=== PATIENT | female | born 1945 | race Caucasian/White ===

== ENCOUNTER 2019-07-05 22:34 | Inpatient (IN) ==
[2019-07-05] MEDS ORDERED: Furosemide 40 MG/4 ML VIAL IVP ONE (23:45)
[2019-07-06 00:56] LABS: Basophils % 0.7 %; Eosinophils # 0.2 K/mcL (0.0-0.6); Eosinophils % 3.8 %; Hematocrit 35.6 % (35.3-44.9); Hemoglobin 10.7 g/dL (11.5-15.4); Immature Granulocytes % 0.7 % (0-4); Lymphocytes # 0.6 K/mcL (0.6-4.6); Lymphocytes % 9.8 %; Mean Corpuscular HGB Conc 30.1 g/dL (31.6-35.5); Mean Corpuscular Hemoglobin 31.2 pg (28.0-33.3); Mean Corpuscular Volume 103.8 fL (83.0-100.0); Mean Platelet Volume 12.2 fL (9.4-12.4); Monocytes # 0.4 K/mcL (0.0-1.3); Red Blood Count 3.43 M/mcL (3.82-4.97); Red Cell Distribution Width 14.3 % (11.5-14.5)
[2019-07-06 00:58] LABS: Neutrophils # 4.7 K/mcL (1.6-8.9); Platelet Count 84 K/mcL (140-400)
[2019-07-06 01:02] LABS: INR 1.2; Prothrombin Time 13.6 Seconds (9.4-12.1)
[2019-07-06 01:05] LABS: Activated Partial Thrombo Time 37.1 Seconds (26.0-36.0)
[2019-07-06 01:09] LABS: Alanine Aminotransferase 13 Units/L (7-52); Albumin 3.6 g/dL (3.5-5.7); Albumin/Globulin Ratio 1.1 (1.1-2.2); Alkaline Phosphatase 57 Units/L (34-104); Aspartate Amino Transferase 16 Units/L (13-39); Bilirubin,Direct 0.1 mg/dL (0.0-0.2); Bilirubin,Indirect 0.3 mg/dL (0.0-1.0); Bilirubin,Total 0.4 mg/dL (0.3-1.0); Blood Urea Nitrogen > 130 mg/dL (8-23); Calcium 8.8 mg/dL (8.6-10.3); Carbon Dioxide 20 mEq/L (23-29); Chloride 102 mEq/L (98-107); Globulin 3.4 g/dL (2.4-3.5); Glucose 123 mg/dL (70-105); Sodium 134 mEq/L (136-145); Troponin I 0.03 ng/mL (< 0.04); eGFR For African Americans 21 (> 60); eGFR For Non-African Americans 17 (> 60)
[2019-07-06] MEDS ORDERED: SODIUM ZIRCONIUM CYCLOSILICATE 5 GM POWD.PACK PO ONE ×2 (02:02→05:15)
[2019-07-06] MEDS ORDERED: Calcium Gluconate 1gm/50mL 1 GM/50 ML BAG IVPB ONE (02:07)
[2019-07-06] MEDS ORDERED: *HR* Dextrose 50 % in Water (Syg) 50 ML SYRINGE IVP ONE (02:11)
[2019-07-06] MEDS ORDERED: Insulin Human Regular 10 UNIT in 0.9 % Sodium Chloride 10 ML IV ONE (02:15)
[2019-07-06] MEDS ORDERED: Naloxone 0.4 MG/ML INJ IVP PRN (03:12)
[2019-07-06] MEDS ORDERED: Ondansetron 4 MG/2 ML VIAL IVP PRN (03:12)
[2019-07-06 03:45] LABS: Sodium, Urine 41.8 mEq/L
[2019-07-06 04:19] LABS: Bacteria,Urine None Seen per hpf (None-Few); Bilirubin,Urine Negative (Negative); Blood,Urine Trace (Negative); Clarity,Urine Clear (Clear); Color,Urine Yellow (Yellow); Glucose,Urine (UA) Normal (Normal); Hyaline Casts,Urine None Seen per lpf (None-Few); Ketones,Urine Negative (Negative); Leukocyte Esterase,Urine Moderate (Negative); Nitrite,Urine Negative (Negative); PH,Urine 5.5 pH Units (5.0-8.0); Protein,Urine Negative (Neg-Trace); RBC,Urine 0-3 per hpf (0-3); Specific Gravity,Urine 1.013 (1.010-1.025); Squamous Epithelial Cell,Urine Moderate per lpf (None-Few); Urobilinogen,Urine Normal (Normal)
[2019-07-06 05:04] LABS: C-Reactive Protein < 5 mg/L (Less than 10); Magnesium 3.2 mg/dL (1.6-2.6); Phosphorous 6.8 mg/dL (2.7-4.5)
[2019-07-06 05:21] LABS: Blood Urea Nitrogen > 130 mg/dL (8-23); Calcium 8.6 mg/dL (8.6-10.3); Carbon Dioxide 20 mEq/L (23-29); Chloride 103 mEq/L (98-107); Glucose 135 mg/dL (70-105); Potassium 5.4 mEq/L (3.5-5.1); Sodium 134 mEq/L (136-145); eGFR For African Americans 21 (> 60); eGFR For Non-African Americans 18 (> 60)
[2019-07-06] MEDS: *HR* Heparin 5,000 UNIT/ML VIAL SQ SCH ×2 (05:38→16:52)
[2019-07-06] MEDS ORDERED: Dextrose Gel 15 GM/37.5 ML TUBE PO PRN ×2 (05:50)
[2019-07-06] MEDS ORDERED: *HR* Dextrose 50 % in Water (Syg) 50 ML SYRINGE IVP PRN (05:50)
[2019-07-06] MEDS ORDERED: D5% in Water 1,000 ML IVC PRN (05:50)
[2019-07-06] MEDS: Insulin LISPRO 300 UNITS/3 ML VIAL SQ SCH ×3 (08:51→16:52)
[2019-07-06] MEDS: Furosemide 40 MG/4 ML VIAL IVP SCH ×2 (08:52→20:29)
[2019-07-06] MEDS ORDERED: SODIUM ZIRCONIUM CYCLOSILICATE 5 GM POWD.PACK PO SCH (09:00)
[2019-07-06] MEDS ORDERED: 0.9 % Sodium Chloride 1,000 ML ONE (11:52)
[2019-07-06] MEDS ORDERED: 0.9 % Sodium Chloride 250 ML IVC PRN (12:06)
[2019-07-06] MEDS ORDERED: *HR* Heparin 10,000 UNIT/10 ML VIAL IV PRN (12:06)
[2019-07-06] MEDS ORDERED: *HR* Heparin 5,000 UNIT/ML VIAL ONE (12:12)
[2019-07-06] MEDS ORDERED: 0.9 % Sodium Chloride 1,000 ML PRIME SCH (12:15)
[2019-07-06 14:30] LABS: Hepatitis B Surface Antibody < 3.10 mIU/mL
[2019-07-06 14:41] LABS: Hepatitis B Surface Antigen Nonreactive (Nonreactive)
[2019-07-06] MEDS: Insulin DETEMIR 100 UNIT/ML X5UNITS SQ SCH (20:56)
[2019-07-07] MEDS: *HR* Heparin 5,000 UNIT/ML VIAL SQ SCH ×2 (03:04→17:51)
[2019-07-07 03:35] LABS: Basophils % 0.6 %; Eosinophils # 0.2 K/mcL (0.0-0.6); Eosinophils % 3.5 %; Hematocrit 30.6 % (35.3-44.9); Hemoglobin 9.2 g/dL (11.5-15.4); Immature Granulocytes % 0.6 % (0-4); Lymphocytes # 0.5 K/mcL (0.6-4.6); Lymphocytes % 9.5 %; Mean Corpuscular HGB Conc 30.1 g/dL (31.6-35.5); Mean Corpuscular Hemoglobin 31.2 pg (28.0-33.3); Mean Corpuscular Volume 103.7 fL (83.0-100.0); Mean Platelet Volume 11.7 fL (9.4-12.4); Monocytes # 0.5 K/mcL (0.0-1.3); Monocytes % 8.8 %; Red Blood Count 2.95 M/mcL (3.82-4.97); Red Cell Distribution Width 14.3 % (11.5-14.5); White Blood Count 5.4 K/mcL (4.3-11.1)
[2019-07-07 03:37] LABS: Neutrophils # 4.2 K/mcL (1.6-8.9); Platelet Count 70 K/mcL (140-400)
[2019-07-07 03:53] LABS: Albumin 3.3 g/dL (3.5-5.7); Calcium 8.1 mg/dL (8.6-10.3); Phosphorous 6.4 mg/dL (2.7-4.5); Potassium 4.1 mEq/L (3.5-5.1)
[2019-07-07] MEDS ORDERED: Iron Sucrose Complex 200 MG in 0.9 % Sodium Chloride 100 ML IVPB ONE (07:18)
[2019-07-07] MEDS: Insulin LISPRO 300 UNITS/3 ML VIAL SQ SCH ×4 (07:33→20:48)
[2019-07-07] MEDS: Furosemide 40 MG/4 ML VIAL IVP SCH ×2 (07:50→20:14)
[2019-07-07] MEDS ORDERED: *HR* Heparin 10,000 UNIT/10 ML VIAL IV PRN (09:11)
[2019-07-07] MEDS ORDERED: 0.9 % Sodium Chloride 250 ML IVC PRN (09:11)
[2019-07-07] MEDS: Pregabalin 75 MG CAPSULE PO SCH (20:13)
[2019-07-07] MEDS: Insulin DETEMIR 100 UNIT/ML X5UNITS SQ SCH (20:14)
[2019-07-07] MEDS: Latanoprost 2.5 ML BOTTLE BOTH EYES SCH (20:26)
[2019-07-08 04:07] LABS: Red Cell Distribution Width 14.4 % (11.5-14.5)
[2019-07-08 04:09] LABS: Basophils % 0.4 %; Eosinophils # 0.2 K/mcL (0.0-0.6); Eosinophils % 2.4 %; Hematocrit 31.9 % (35.3-44.9); Hemoglobin 9.7 g/dL (11.5-15.4); Immature Granulocytes % 0.9 % (0-4); Immature Platelets 3.7 % (1.1-6.1); Lymphocytes # 0.7 K/mcL (0.6-4.6); Lymphocytes % 10.2 %; Mean Corpuscular HGB Conc 30.4 g/dL (31.6-35.5); Mean Corpuscular Hemoglobin 30.6 pg (28.0-33.3); Mean Corpuscular Volume 100.6 fL (83.0-100.0); Mean Platelet Volume 11.7 fL (9.4-12.4); Monocytes # 0.7 K/mcL (0.0-1.3); Monocytes % 10.8 %; Neutrophils # 5.1 K/mcL (1.6-8.9); Red Blood Count 3.17 M/mcL (3.82-4.97); Segmented Neutrophils % 75.3 %; White Blood Count 6.8 K/mcL (4.3-11.1)
[2019-07-08 04:13] LABS: Platelet Count 66 K/mcL (140-400)
[2019-07-08 04:25] LABS: Uric Acid 4.7 mg/dL (2.3-7.6)
[2019-07-08 04:27] LABS: Calcium 8.3 mg/dL (8.6-10.3); Phosphorous 4.1 mg/dL (2.7-4.5); Potassium 3.6 mEq/L (3.5-5.1)
[2019-07-08] MEDS: *HR* Heparin 5,000 UNIT/ML VIAL SQ SCH ×2 (05:15→17:28)
[2019-07-08] MEDS ORDERED: 0.9 % Sodium Chloride 250 ML IVC PRN (07:32)
[2019-07-08] MEDS ORDERED: *HR* Heparin 10,000 UNIT/10 ML VIAL IV PRN (07:32)
[2019-07-08] MEDS: Insulin LISPRO 300 UNITS/3 ML VIAL SQ SCH ×4 (07:43→20:17)
[2019-07-08] MEDS: Fluticasone Propionate Nasal 50 MCG/SPRAY BOTTLE NS SCH (11:19)
[2019-07-08] MEDS: Furosemide 40 MG/4 ML VIAL IVP SCH ×2 (11:19→20:16)
[2019-07-08] MEDS: allopurinoL 100 MG TABLET PO SCH (11:19)
[2019-07-08] MEDS: cefTRIAXone 1,000 MG in Water for inj. (sterile) 10 ML IVP SCH (11:19)
[2019-07-08] MEDS: Pregabalin 75 MG CAPSULE PO SCH ×2 (11:19→20:15)
[2019-07-08] MEDS: Latanoprost 2.5 ML BOTTLE BOTH EYES SCH (20:17)
[2019-07-08] MEDS: Insulin DETEMIR 100 UNIT/ML X5UNITS SQ SCH (20:17)
[2019-07-09 04:49] LABS: Hemoglobin 9.5 g/dL (11.5-15.4); Immature Granulocytes % 0.6 % (0-4); Lymphocytes % 13.9 %
[2019-07-09 04:51] LABS: Basophils % 0.4 %; Eosinophils # 0.3 K/mcL (0.0-0.6); Eosinophils % 4.3 %; Hematocrit 31.1 % (35.3-44.9); Immature Platelets 4.5 % (1.1-6.1); Mean Corpuscular HGB Conc 30.5 g/dL (31.6-35.5); Mean Corpuscular Hemoglobin 31.1 pg (28.0-33.3); Monocytes # 0.8 K/mcL (0.0-1.3); Monocytes % 11.5 %; Neutrophils # 4.7 K/mcL (1.6-8.9); Red Blood Count 3.05 M/mcL (3.82-4.97); Red Cell Distribution Width 14.9 % (11.5-14.5); Segmented Neutrophils % 69.3 %; White Blood Count 6.8 K/mcL (4.3-11.1)
[2019-07-09 04:56] LABS: Platelet Count 75 K/mcL (140-400)
[2019-07-09 05:04] LABS: Calcium 8.3 mg/dL (8.6-10.3); Potassium 3.7 mEq/L (3.5-5.1)
[2019-07-09] MEDS: *HR* Heparin 5,000 UNIT/ML VIAL SQ SCH ×2 (05:14→16:53)
[2019-07-09] MEDS: Insulin LISPRO 300 UNITS/3 ML VIAL SQ SCH ×4 (07:25→22:07)
[2019-07-09] MEDS: cefTRIAXone 1,000 MG in Water for inj. (sterile) 10 ML IVP SCH (08:34)
[2019-07-09] MEDS: Pregabalin 75 MG CAPSULE PO SCH ×2 (08:36→22:06)
[2019-07-09] MEDS: Fluticasone Propionate Nasal 50 MCG/SPRAY BOTTLE NS SCH (08:36)
[2019-07-09] MEDS: Furosemide 40 MG/4 ML VIAL IVP SCH (08:36)
[2019-07-09] MEDS: allopurinoL 100 MG TABLET PO SCH (08:36)
[2019-07-09] MEDS ORDERED: MOM Conc 10 ML UD.LIQ PO PRN (11:08)
[2019-07-09] MEDS: Furosemide 40 MG TABLET PO SCH (16:53)
[2019-07-09] MEDS: Insulin DETEMIR 100 UNIT/ML X5UNITS SQ SCH (22:06)
[2019-07-09] MEDS: Latanoprost 2.5 ML BOTTLE BOTH EYES SCH (22:09)
[2019-07-09] MEDS: Sennosides/Docusate Sodium TABLET PO SCH (22:09)
[2019-07-10 04:20] LABS: Hematocrit 30.2 % (35.3-44.9); Hemoglobin 9.1 g/dL (11.5-15.4); Mean Corpuscular HGB Conc 30.1 g/dL (31.6-35.5); Monocytes % 12.3 %; Red Cell Distribution Width 14.6 % (11.5-14.5)
[2019-07-10 04:22] LABS: Basophils % 0.5 %; Eosinophils # 0.3 K/mcL (0.0-0.6); Eosinophils % 4.9 %; Immature Granulocytes % 0.7 % (0-4); Immature Platelets 3.8 % (1.1-6.1); Lymphocytes # 0.9 K/mcL (0.6-4.6); Lymphocytes % 15.9 %; Mean Corpuscular Hemoglobin 31.5 pg (28.0-33.3); Mean Corpuscular Volume 104.5 fL (83.0-100.0); Mean Platelet Volume 11.7 fL (9.4-12.4); Monocytes # 0.7 K/mcL (0.0-1.3); Neutrophils # 3.9 K/mcL (1.6-8.9); Red Blood Count 2.89 M/mcL (3.82-4.97); Segmented Neutrophils % 65.7 %; White Blood Count 5.9 K/mcL (4.3-11.1)
[2019-07-10 04:28] LABS: Platelet Count 68 K/mcL (140-400)
[2019-07-10 04:42] LABS: Potassium 4.1 mEq/L (3.5-5.1)
[2019-07-10] MEDS: *HR* Heparin 5,000 UNIT/ML VIAL SQ SCH ×2 (05:44→16:54)
[2019-07-10] MEDS: Furosemide 40 MG TABLET PO SCH ×2 (07:35→16:53)
[2019-07-10] MEDS: allopurinoL 100 MG TABLET PO SCH (07:35)
[2019-07-10] MEDS: Fluticasone Propionate Nasal 50 MCG/SPRAY BOTTLE NS SCH (07:35)
[2019-07-10] MEDS: Insulin LISPRO 300 UNITS/3 ML VIAL SQ SCH ×4 (07:35→23:17)
[2019-07-10] MEDS: cefTRIAXone 1,000 MG in Water for inj. (sterile) 10 ML IVP SCH (07:35)
[2019-07-10] MEDS: Pregabalin 75 MG CAPSULE PO SCH ×2 (07:35→23:16)
[2019-07-10] MEDS: Sennosides/Docusate Sodium TABLET PO SCH ×2 (07:35→23:17)
[2019-07-10] MEDS: Insulin DETEMIR 100 UNIT/ML X5UNITS SQ SCH (23:17)
[2019-07-10] MEDS: Latanoprost 2.5 ML BOTTLE BOTH EYES SCH (23:17)
[2019-07-11 05:22] LABS: Basophils % 0.5 %; Hematocrit 31.4 % (35.3-44.9); Hemoglobin 9.5 g/dL (11.5-15.4); Mean Corpuscular HGB Conc 30.3 g/dL (31.6-35.5); Red Cell Distribution Width 14.7 % (11.5-14.5)
[2019-07-11 05:24] LABS: Eosinophils # 0.4 K/mcL (0.0-0.6); Eosinophils % 5.6 %; Immature Granulocytes % 0.8 % (0-4); Immature Platelets 4.4 % (1.1-6.1); Lymphocytes # 0.8 K/mcL (0.6-4.6); Lymphocytes % 12.4 %; Mean Corpuscular Hemoglobin 31.3 pg (28.0-33.3); Mean Corpuscular Volume 103.3 fL (83.0-100.0); Mean Platelet Volume 11.3 fL (9.4-12.4); Monocytes # 0.6 K/mcL (0.0-1.3); Monocytes % 9.9 %; Neutrophils # 4.6 K/mcL (1.6-8.9); Red Blood Count 3.04 M/mcL (3.82-4.97); Segmented Neutrophils % 70.8 %; White Blood Count 6.5 K/mcL (4.3-11.1)
[2019-07-11 05:26] LABS: Platelet Count 77 K/mcL (140-400)
[2019-07-11 05:41] LABS: Calcium 8.1 mg/dL (8.6-10.3); Potassium 4.4 mEq/L (3.5-5.1)
[2019-07-11] MEDS: *HR* Heparin 5,000 UNIT/ML VIAL SQ SCH ×2 (06:04→17:02)
[2019-07-11] MEDS: cefTRIAXone 1,000 MG in Water for inj. (sterile) 10 ML IVP SCH (08:16)
[2019-07-11] MEDS: Pregabalin 75 MG CAPSULE PO SCH ×2 (08:23→20:11)
[2019-07-11] MEDS: Furosemide 40 MG TABLET PO SCH ×2 (08:24→16:05)
[2019-07-11] MEDS: allopurinoL 100 MG TABLET PO SCH (08:24)
[2019-07-11] MEDS: Insulin LISPRO 300 UNITS/3 ML VIAL SQ SCH ×4 (08:24→20:12)
[2019-07-11] MEDS: Sennosides/Docusate Sodium TABLET PO SCH ×2 (08:24→20:11)
[2019-07-11] MEDS: Fluticasone Propionate Nasal 50 MCG/SPRAY BOTTLE NS SCH (08:24)
[2019-07-11] MEDS: Insulin DETEMIR 100 UNIT/ML X5UNITS SQ SCH (20:11)
[2019-07-11] MEDS: Latanoprost 2.5 ML BOTTLE BOTH EYES SCH (20:11)
[2019-07-12] MEDS: *HR* Heparin 5,000 UNIT/ML VIAL SQ SCH ×2 (05:01→17:06)
[2019-07-12 05:33] LABS: Calcium 8.5 mg/dL (8.6-10.3); Potassium 4.3 mEq/L (3.5-5.1)
[2019-07-12] MEDS: Sennosides/Docusate Sodium TABLET PO SCH ×2 (08:15→20:46)
[2019-07-12] MEDS: Pregabalin 75 MG CAPSULE PO SCH ×2 (08:15→20:46)
[2019-07-12] MEDS: Furosemide 40 MG TABLET PO SCH (08:15)
[2019-07-12] MEDS: allopurinoL 100 MG TABLET PO SCH (08:15)
[2019-07-12] MEDS: Fluticasone Propionate Nasal 50 MCG/SPRAY BOTTLE NS SCH (08:16)
[2019-07-12] MEDS: cefTRIAXone 1,000 MG in Water for inj. (sterile) 10 ML IVP SCH (08:16)
[2019-07-12] MEDS: Insulin LISPRO 300 UNITS/3 ML VIAL SQ SCH ×4 (08:16→20:46)
[2019-07-12] MEDS: Insulin DETEMIR 100 UNIT/ML X5UNITS SQ SCH (20:46)
[2019-07-12] MEDS: Latanoprost 2.5 ML BOTTLE BOTH EYES SCH (20:47)
[2019-07-13 01:48] LABS: Calcium 8.5 mg/dL (8.6-10.3); Potassium 4.4 mEq/L (3.5-5.1)
[2019-07-13] MEDS: *HR* Heparin 5,000 UNIT/ML VIAL SQ SCH ×2 (05:11→18:17)
[2019-07-13] MEDS: Pregabalin 75 MG CAPSULE PO SCH ×2 (08:50→20:21)
[2019-07-13] MEDS: cephALEXin 250 MG CAPSULE PO SCH ×2 (08:50→20:21)
[2019-07-13] MEDS: allopurinoL 100 MG TABLET PO SCH (08:51)
[2019-07-13] MEDS: Sennosides/Docusate Sodium TABLET PO SCH ×2 (08:51→20:21)
[2019-07-13] MEDS: Fluticasone Propionate Nasal 50 MCG/SPRAY BOTTLE NS SCH (08:52)
[2019-07-13] MEDS: Insulin LISPRO 300 UNITS/3 ML VIAL SQ SCH ×4 (08:52→20:23)
[2019-07-13 11:07] LABS: Sodium, Urine 15.4 mEq/L
[2019-07-13] MEDS: Nystatin POWDER 30 GM BOTTLE TP SCH ×2 (15:13→20:23)
[2019-07-13] MEDS: Insulin DETEMIR 100 UNIT/ML X5UNITS SQ SCH (20:22)
[2019-07-13] MEDS: Latanoprost 2.5 ML BOTTLE BOTH EYES SCH (20:23)
[2019-07-13] MEDS ORDERED: Albumin 25% 25gram/100mL 25 GM/100 ML IV.SOLN IVPB ONE (21:38)
[2019-07-14 01:42] LABS: Monocytes % 11.7 %
[2019-07-14 01:43] LABS: Basophils % 0.4 %; Eosinophils # 0.3 K/mcL (0.0-0.6); Eosinophils % 4.2 %; Hematocrit 31.2 % (35.3-44.9); Hemoglobin 9.5 g/dL (11.5-15.4); Immature Platelets 2.8 % (1.1-6.1); Lymphocytes # 0.6 K/mcL (0.6-4.6); Lymphocytes % 8.7 %; Mean Corpuscular HGB Conc 30.4 g/dL (31.6-35.5); Mean Corpuscular Hemoglobin 31.8 pg (28.0-33.3); Mean Corpuscular Volume 104.3 fL (83.0-100.0); Mean Platelet Volume 11.3 fL (9.4-12.4); Monocytes # 0.8 K/mcL (0.0-1.3); Neutrophils # 5.2 K/mcL (1.6-8.9); Red Blood Count 2.99 M/mcL (3.82-4.97); Red Cell Distribution Width 14.6 % (11.5-14.5)
[2019-07-14 01:48] LABS: Platelet Count 98 K/mcL (140-400)
[2019-07-14 02:00] LABS: Calcium 8.3 mg/dL (8.6-10.3); Potassium 4.3 mEq/L (3.5-5.1)
[2019-07-14] MEDS: *HR* Heparin 5,000 UNIT/ML VIAL SQ SCH ×2 (05:18→16:58)
[2019-07-14] MEDS: Insulin LISPRO 300 UNITS/3 ML VIAL SQ SCH ×4 (08:04→22:39)
[2019-07-14] MEDS: Nystatin POWDER 30 GM BOTTLE TP SCH ×2 (08:06→22:39)
[2019-07-14] MEDS: allopurinoL 100 MG TABLET PO SCH (08:06)
[2019-07-14] MEDS: Pregabalin 75 MG CAPSULE PO SCH ×2 (08:06→22:40)
[2019-07-14] MEDS: Sennosides/Docusate Sodium TABLET PO SCH ×2 (08:06→22:40)
[2019-07-14] MEDS: Fluticasone Propionate Nasal 50 MCG/SPRAY BOTTLE NS SCH (08:07)
[2019-07-14] MEDS ORDERED: 0.9 % Sodium Chloride 250 ML IVC SCH (10:45)
[2019-07-14] MEDS ORDERED: 0.9 % Sodium Chloride 1,000 ML IVC SCH (11:15)
[2019-07-14] MEDS: Insulin DETEMIR 100 UNIT/ML X5UNITS SQ SCH (22:39)
[2019-07-14] MEDS: Latanoprost 2.5 ML BOTTLE BOTH EYES SCH (23:40)
[2019-07-15 02:57] LABS: Basophils % 0.5 %; Eosinophils # 0.4 K/mcL (0.0-0.6); Eosinophils % 4.7 %; Hematocrit 30.7 % (35.3-44.9); Hemoglobin 9.4 g/dL (11.5-15.4); Immature Granulocytes % 0.6 % (0-4); Lymphocytes # 0.5 K/mcL (0.6-4.6); Lymphocytes % 6.6 %; Mean Corpuscular HGB Conc 30.6 g/dL (31.6-35.5); Mean Corpuscular Hemoglobin 31.8 pg (28.0-33.3); Mean Corpuscular Volume 103.7 fL (83.0-100.0); Mean Platelet Volume 11.4 fL (9.4-12.4); Monocytes # 0.9 K/mcL (0.0-1.3); Monocytes % 11.2 %; Neutrophils # 6.2 K/mcL (1.6-8.9); Platelet Count 103 K/mcL (140-400); Red Blood Count 2.96 M/mcL (3.82-4.97); Red Cell Distribution Width 14.6 % (11.5-14.5); Segmented Neutrophils % 76.4 %; White Blood Count 8.1 K/mcL (4.3-11.1)
[2019-07-15 03:13] LABS: Calcium 8.4 mg/dL (8.6-10.3); Potassium 4.4 mEq/L (3.5-5.1)
[2019-07-15] MEDS: *HR* Heparin 5,000 UNIT/ML VIAL SQ SCH ×2 (06:00→16:48)
[2019-07-15] MEDS: Sennosides/Docusate Sodium TABLET PO SCH ×2 (07:39→23:34)
[2019-07-15] MEDS: Nystatin POWDER 30 GM BOTTLE TP SCH ×2 (07:40→23:54)
[2019-07-15] MEDS: allopurinoL 100 MG TABLET PO SCH (07:40)
[2019-07-15] MEDS: Pregabalin 75 MG CAPSULE PO SCH ×2 (07:40→23:34)
[2019-07-15] MEDS: Insulin LISPRO 300 UNITS/3 ML VIAL SQ SCH ×4 (07:41→23:49)
[2019-07-15] MEDS: Fluticasone Propionate Nasal 50 MCG/SPRAY BOTTLE NS SCH (07:41)
[2019-07-15] MEDS: predniSONE 20 MG TABLET PO SCH (12:08)
[2019-07-15] MEDS ORDERED: 0.9 % Sodium Chloride 1,000 ML IVC SCH (15:00)
[2019-07-15] MEDS: Insulin DETEMIR 100 UNIT/ML X5UNITS SQ SCH (23:47)
[2019-07-15] MEDS: Latanoprost 2.5 ML BOTTLE BOTH EYES SCH (23:54)
[2019-07-16] MEDS: *HR* Heparin 5,000 UNIT/ML VIAL SQ SCH ×2 (06:51→16:47)
[2019-07-16 08:46] LABS: Calcium 8.8 mg/dL (8.6-10.3); Potassium 4.4 mEq/L (3.5-5.1)
[2019-07-16] MEDS: Pregabalin 75 MG CAPSULE PO SCH ×2 (09:34→23:36)
[2019-07-16] MEDS: predniSONE 20 MG TABLET PO SCH (09:34)
[2019-07-16] MEDS: Sennosides/Docusate Sodium TABLET PO SCH ×2 (09:34→23:36)
[2019-07-16] MEDS: Fluticasone Propionate Nasal 50 MCG/SPRAY BOTTLE NS SCH (09:34)
[2019-07-16] MEDS: allopurinoL 100 MG TABLET PO SCH (09:34)
[2019-07-16] MEDS: Insulin LISPRO 300 UNITS/3 ML VIAL SQ SCH ×4 (09:36→23:33)
[2019-07-16] MEDS: Nystatin POWDER 30 GM BOTTLE TP SCH (09:39)
[2019-07-16] MEDS: Insulin DETEMIR 100 UNIT/ML X5UNITS SQ SCH (23:31)
[2019-07-16] MEDS: Latanoprost 2.5 ML BOTTLE BOTH EYES SCH (23:37)
[2019-07-17] MEDS: Nystatin POWDER 30 GM BOTTLE TP SCH ×3 (00:08→20:30)
[2019-07-17] MEDS: *HR* Heparin 5,000 UNIT/ML VIAL SQ SCH ×2 (06:01→16:55)
[2019-07-17 08:17] LABS: Calcium 9.5 mg/dL (8.6-10.3); Potassium 4.5 mEq/L (3.5-5.1)
[2019-07-17] MEDS: predniSONE 20 MG TABLET PO SCH (09:00)
[2019-07-17] MEDS: Pregabalin 75 MG CAPSULE PO SCH ×2 (09:00→20:28)
[2019-07-17] MEDS: Sennosides/Docusate Sodium TABLET PO SCH ×2 (09:00→20:28)
[2019-07-17] MEDS: allopurinoL 100 MG TABLET PO SCH (09:00)
[2019-07-17] MEDS: Fluticasone Propionate Nasal 50 MCG/SPRAY BOTTLE NS SCH (09:00)
[2019-07-17] MEDS: Insulin LISPRO 300 UNITS/3 ML VIAL SQ SCH ×4 (09:01→22:31)
[2019-07-17] MEDS: Albumin 25% 25gram/100mL 25 GM/100 ML IV.SOLN IVC SCH ×4 (13:23→18:37)
[2019-07-17] MEDS: Insulin DETEMIR 100 UNIT/ML X5UNITS SQ SCH (20:29)
[2019-07-17] MEDS: Latanoprost 2.5 ML BOTTLE BOTH EYES SCH (20:29)
[2019-07-18] MEDS: *HR* Heparin 5,000 UNIT/ML VIAL SQ SCH ×2 (06:10→17:46)
[2019-07-18] MEDS: Insulin LISPRO 300 UNITS/3 ML VIAL SQ SCH ×4 (08:23→22:03)
[2019-07-18] MEDS: Pregabalin 75 MG CAPSULE PO SCH ×2 (08:24→22:03)
[2019-07-18] MEDS: Sennosides/Docusate Sodium TABLET PO SCH ×2 (08:24→22:03)
[2019-07-18] MEDS: predniSONE 20 MG TABLET PO SCH (08:24)
[2019-07-18] MEDS: Nystatin POWDER 30 GM BOTTLE TP SCH ×2 (08:24→22:04)
[2019-07-18] MEDS: Fluticasone Propionate Nasal 50 MCG/SPRAY BOTTLE NS SCH (08:24)
[2019-07-18] MEDS: allopurinoL 100 MG TABLET PO SCH (08:24)
[2019-07-18 10:35] LABS: Calcium 9.7 mg/dL (8.6-10.3); Potassium 4.7 mEq/L (3.5-5.1)
[2019-07-18] MEDS ORDERED: Acetaminophen 325 MG TABLET PO PRN (15:50)
[2019-07-18] MEDS: Insulin DETEMIR 100 UNIT/ML X5UNITS SQ SCH (22:03)
[2019-07-18] MEDS: Latanoprost 2.5 ML BOTTLE BOTH EYES SCH (22:05)
[2019-07-18] MEDS ORDERED: Menthol 9.1 MG LOZENGE PO PRN (22:37)
[2019-07-19 02:18] LABS: Basophils % 0.3 %; Eosinophils % 0.1 %; Immature Granulocytes % 1.4 % (0-4); Lymphocytes # 0.7 K/mcL (0.6-4.6); Lymphocytes % 9.1 %; Mean Corpuscular Hemoglobin 31.3 pg (28.0-33.3); Mean Corpuscular Volume 104.2 fL (83.0-100.0); Mean Platelet Volume 11.5 fL (9.4-12.4); Monocytes # 0.7 K/mcL (0.0-1.3); Monocytes % 9.5 %; Neutrophils # 5.7 K/mcL (1.6-8.9); Platelet Count 153 K/mcL (140-400); Red Blood Count 3.55 M/mcL (3.82-4.97); Red Cell Distribution Width 14.3 % (11.5-14.5); Segmented Neutrophils % 79.6 %; White Blood Count 7.2 K/mcL (4.3-11.1)
[2019-07-19 02:29] LABS: Calcium 9.7 mg/dL (8.6-10.3); Potassium 4.9 mEq/L (3.5-5.1)
[2019-07-19 02:32] LABS: Hemoglobin 11.1 g/dL (11.5-15.4)
[2019-07-19] MEDS: *HR* Heparin 5,000 UNIT/ML VIAL SQ SCH ×2 (05:29→17:20)
[2019-07-19] MEDS: Pregabalin 75 MG CAPSULE PO SCH ×2 (08:56→23:36)
[2019-07-19] MEDS: Fluticasone Propionate Nasal 50 MCG/SPRAY BOTTLE NS SCH (08:56)
[2019-07-19] MEDS: allopurinoL 100 MG TABLET PO SCH (08:56)
[2019-07-19] MEDS: Sennosides/Docusate Sodium TABLET PO SCH ×2 (08:56→23:36)
[2019-07-19] MEDS: Insulin LISPRO 300 UNITS/3 ML VIAL SQ SCH ×4 (08:57→23:38)
[2019-07-19] MEDS: Nystatin POWDER 30 GM BOTTLE TP SCH ×2 (08:59→23:41)
[2019-07-19] MEDS: Latanoprost 2.5 ML BOTTLE BOTH EYES SCH (23:37)
[2019-07-19] MEDS: Insulin DETEMIR 100 UNIT/ML X5UNITS SQ SCH (23:42)
[2019-07-20] MEDS ORDERED: Levalbuterol Neb 1.25 MG/3 ML IH PRN (00:09)
[2019-07-20 01:16] LABS: Basophils # 0.1 K/mcL (0.0-0.2); Basophils % 0.7 %; Eosinophils # 0.2 K/mcL (0.0-0.6); Eosinophils % 2.7 %; Hematocrit 36.8 % (35.3-44.9); Hemoglobin 10.8 g/dL (11.5-15.4); Immature Granulocytes % 1.5 % (0-4); Lymphocytes # 1.1 K/mcL (0.6-4.6); Mean Corpuscular HGB Conc 29.3 g/dL (31.6-35.5); Mean Corpuscular Hemoglobin 31.3 pg (28.0-33.3); Mean Corpuscular Volume 106.7 fL (83.0-100.0); Mean Platelet Volume 11.1 fL (9.4-12.4); Monocytes # 0.6 K/mcL (0.0-1.3); Monocytes % 8.4 %; Neutrophils # 5.4 K/mcL (1.6-8.9); Platelet Count 153 K/mcL (140-400); Red Blood Count 3.45 M/mcL (3.82-4.97); Red Cell Distribution Width 14.6 % (11.5-14.5); Segmented Neutrophils % 72.7 %; White Blood Count 7.5 K/mcL (4.3-11.1)
[2019-07-20 01:36] LABS: Calcium 9.5 mg/dL (8.6-10.3); Potassium 4.7 mEq/L (3.5-5.1)
[2019-07-20] MEDS: *HR* Heparin 5,000 UNIT/ML VIAL SQ SCH ×2 (06:31→17:29)
[2019-07-20] MEDS: Insulin LISPRO 300 UNITS/3 ML VIAL SQ SCH ×4 (07:48→22:23)
[2019-07-20] MEDS: Sennosides/Docusate Sodium TABLET PO SCH ×2 (07:49→22:25)
[2019-07-20] MEDS: Fluticasone Propionate Nasal 50 MCG/SPRAY BOTTLE NS SCH (07:49)
[2019-07-20] MEDS: Pregabalin 75 MG CAPSULE PO SCH ×2 (07:49→22:25)
[2019-07-20] MEDS: Furosemide 40 MG TABLET PO SCH (07:49)
[2019-07-20] MEDS: allopurinoL 100 MG TABLET PO SCH (07:49)
[2019-07-20] MEDS: Nystatin POWDER 30 GM BOTTLE TP SCH ×2 (07:50→22:25)
[2019-07-20] MEDS ORDERED: Insulin DETEMIR 100 UNIT/ML X5UNITS SQ ONE (12:30)
[2019-07-20] MEDS ORDERED: Insulin DETEMIR 100 UNIT/ML X5UNITS SQ SCH (21:00)
[2019-07-20] MEDS: Latanoprost 2.5 ML BOTTLE BOTH EYES SCH (22:26)
[2019-07-21 02:43] LABS: Calcium 9.4 mg/dL (8.6-10.3); Potassium 4.3 mEq/L (3.5-5.1)
[2019-07-21] MEDS: *HR* Heparin 5,000 UNIT/ML VIAL SQ SCH (06:10)
[2019-07-21 07:22] VITALS: BP 128/66
[2019-07-21] MEDS: Insulin LISPRO 300 UNITS/3 ML VIAL SQ SCH (07:54)
[2019-07-21] MEDS: allopurinoL 100 MG TABLET PO SCH (08:27)
[2019-07-21] MEDS: Furosemide 40 MG TABLET PO SCH (08:27)
[2019-07-21] MEDS: Sennosides/Docusate Sodium TABLET PO SCH (08:27)
[2019-07-21] MEDS: Nystatin POWDER 30 GM BOTTLE TP SCH (08:28)
[2019-07-21] MEDS: Pregabalin 75 MG CAPSULE PO SCH (08:28)
[2019-07-21] MEDS: Fluticasone Propionate Nasal 50 MCG/SPRAY BOTTLE NS SCH (08:28)
== END 2019-07-21 10:17 | disposition home health service (06) | DRG 291 ==
LOC: EMEROOARM 22:34 → 2ANU 22:34 → SUATTDRO 07-06 02:55 → 2ANU 07-06 03:26 → SUATTDRO 07-07 14:34
PROVIDERS: ADMIT Internal Medicine; ATTEND Family Medicine